=== PATIENT | male | born 1990 | race Two or more races ===

== ENCOUNTER 2020-11-20 16:14 | Emergency (ER) | payer SELFPAY ==
[~2020-11-20] VITALS: Ht 172.7 cm; Wt 99.0 kg
[2020-11-20 18:17] VITALS: BP 141/63
[2020-11-20] MEDS ORDERED: GUAI-108 PO (19:20)
[2020-11-20] MEDS ORDERED: FAMO40TA57 PO (19:20)
--- NOTE | 2020-11-20 19:20 | PHYS DOC ---
Past Medical History Past Surgical History: Other Additional Past Surgical Histo: "KIDNEY STONE OUT." General Adult EDM: Chief Complaint: OTHER COMPLAINTS HPI: HPI: Patient is a 29 year old male presents with a chief complaint of nasal congestion and drainage x2 to 3 months. Patient states he is used multiple [id number] medications with no relief.. He denies any frontal or maxillary sinus congestion. His main complaint is nasal congestion with drainage. Patient states symptoms keep him up at night and is having difficulty sleeping. He denies any associated fevers or chills. Patient denies any associated cough fever chills or shortness of breath. Patient also complains of several months of abdominal discomfort. Discomfort is diffuse and described as a burning sensation. Patient has no associated nausea vomiting or diarrhea. Patient does have a past surgical history of cholecystectomy. Patient has been vaccinated against COVID-19. He also states he has a history of nasal fracture as a child. Review of Systems: Review of Systems: Constitutional: Denies fever or chills. [] Eyes: Denies change in visual acuity. [] HENT: Positive nasal congestion denies sore throat. [] Respiratory: Denies cough or shortness of breath. [] Cardiovascular: Denies chest pain or edema. [] GI: Positive abdominal painDenies , nausea, vomiting, bloody stools or diarrhea. [] : Denies dysuria. [] Musculoskeletal: Denies back pain or joint pain. [] Integument: Denies rash. [] Neurologic: Denies headache, focal weakness or sensory changes. [] Endocrine: Denies polyuria or polydipsia. [] Lymphatic: Denies swollen glands. [] Psychiatric: Denies depression or anxiety. [] Heart Score: C/O Chest Pain: N/A Risk Factors: Risk Factors: DM, Current or recent (<one month) smoker, HTN, HLP, family history of CAD, obesity. Risk Scores: Score 0 - 3: 2.5% MACE over next 6 weeks - Discharge Home Score 4 - 6: 20.3% MACE over next 6 weeks - Admit for Clinical Observation Score 7 - 10: 72.7% MACE over next 6 weeks - Early Invasive Strategies Allergies: Allergies: Allergies Coded Allergies Type Severity Reaction Last Updated Verified No Known Drug Allergies 11/20/20 No Physical Exam: PE: General: alert, no acute distress. Skin: warm, dry and intact, no erythema, no rash. HENT: bilateral external ears normal, oropharynx moist, nose normal. Head:: Normocephalic, atraumatic. Neck: Trachea midline. Eyes: EOMI, Normal conjunctiva, No drainage CARDIOVASCULAR: Regular rate and rhythm RESPIRATORY: No respiratory distress Back: Full range of motion. MUSCULOSKELETAL: Full range of motion of bilateral upper and lower extremities. GASTROINTESTINAL: Abdomen soft without rebound or guarding. NEUROLOGICAL: Alert and noted to person, place and time. No neurological deficits observed Psychiatric: Cooperative. Normal judgment Current Patient Data: Vital Signs: Vital Signs Date Time Temp Pulse Resp B/P (MAP) Pulse Ox O2 Delivery O2 Flow Rate FiO2 11/20/20 18:17 97.9 79 16 141/63 (89) 100 Room Air 97.9 EKG: EKG: [] Radiology/Procedures: Radiology/Procedures: [] Course & Med Decision Making: Course & Med Decision Making Pertinent Labs and Imaging studies reviewed. (See chart for details) [] Patient is in no acute distress. Patient abdomen soft without rebound or guarding. Next abdominal pain has been ongoing for several months do not suspect acute appendicitis or any acute surgical diagnosis. Patient was prescribed Pepcid and Mucinex D. Patient advised to continue sinus rinses. Patient will need to follow-up with primary care physician with possible referral to ENT. Jose Disclaimer: Jose Disclaimer: This electronic medical record was generated, in whole or in part, using a voice recognition dictation system. Departure Departure Impression: Primary Impression: Nasal congestion Additional Impression: Abdominal discomfort Disposition: HOME / SELF CARE / HOMELESS Condition: STABLE Referrals: NO PCP (PCP) Patient Instructions: Abdominal Pain (Nonspecific), Sinusitis Scripts Famotidine (PEPCID) 40 Mg Tablet 40 MG PO HS for 30 Days, #30 TAB Prov: NEOCRIS Maida DO 11/20/20 Guaifenesin/Dextromethorphan (MUCINEX DM ER 600-30 MG TABLET) 1 Each Tab.er.12h 1 TAB PO PRN BID PRN for cough and congestion for 14 Days, #28 TAB 0 Refills Prov: NEOCRIS Maida DO 11/20/20 NEOCRIS Maida DO Nov 20, 2020 19:20
== END 2020-11-20 19:42 | disposition home or self-care (01) ==
LOC: ER 16:14
DX: R09.81 Nasal congestion (principal); R10.84 Generalized abdominal pain; Z90.49 Acquired absence of other specified parts of digestive tract
CPT/HCPCS: 99282